=== PATIENT | female | born 1950 | race Caucasian/White ===

== ENCOUNTER 2019-06-04 16:09 | Emergency (ER) | payer MEDICARE ==
[~2019-06-04] VITALS: Ht 168.9 cm; Wt 101.1 kg
--- NOTE | 2019-06-04 16:42 | RAD ---
CT CODE STROKE HEAD WO History: Stroke symptoms Comparison: None. Technique: Noncontrast CT imaging was performed of the head. Exposure: One or more of the following individualized dose reduction techniques were utilized for this examination: 1. Automated exposure control 2. Adjustment of the mA and/or kV according to patient size 3. Use of iterative reconstruction technique. Findings: There is motion degradation. No convincing acute intracranial hemorrhage is identified. There is encephalomalacia with cortical involvement left occipital lobe, also likely some volume loss left cerebellum. Mild somewhat linear hyperdensity of the left cerebellum is probably related to mineralization given linear morphology. There is atherosclerotic calcification of the bilateral intradural vertebral arteries and carotid siphons. Left ICA bifurcation is somewhat more hyperdense than the right. There is atherosclerotic calcification of the bilateral carotid siphons and intradural vertebral arteries. There is no intra-axial mass effect or midline shift. Ventricular size is within normal limits. Mastoid air cells are aerated. There is mild left maxillary sinus mucosal thickening and small mucous retention cysts. There is patchy ethmoid air cell mucosal thickening greater on the left. There is mild deviation of the nasal septum to the left. Impression: 1. There is no convincing evidence of acute intracranial hemorrhage, exam degraded by motion. 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 Left ICA bifurcation is slightly more hyperdense than the right, thromboembolism not excludable by noncontrast exam, better evaluated with CTA if clinically needed. FOR INTERNAL CODING PURPOSES Critical result: Findings discussed with JASON CAO at 06/04/2019 4:36 PM. RESULT CODE: (C) Electronically signed by: Munir Salinas MD (06/04/2019 4:40 PM) [id number]
--- NOTE | 2019-06-04 16:44 | RAD ---
CHEST AP ONLY History: Stroke symptoms Comparison: September 08, 2007 Findings: Single view of the chest is submitted. Pericardial cardiac silhouette is stable. There is again azygos fissure. There is atherosclerotic calcification near aortic arch. There is no significant dependent pleural fluid, lobar infiltrate, pneumothorax. Impression: 1. There is no radiographic evidence of acute cardiopulmonary disease. Electronically signed by: Munir Salinas MD (06/04/2019 4:40 PM) [id number]
[2019-06-04 17:01] LABS: BASO # 0.1 x10^3/uL (0.0-0.2); BASO % 1 % (0-3); EOS # 0.2 x10^3/uL (0.0-0.7); EOS % 2 % (0-3); HEMOGLOBIN 15.4 g/dL (12.0-15.5); LYMPH # 2.5 x10^3/uL (1.0-4.8); LYMPH % 29 % (24-48); MEAN CORPUSCULAR HEMOGLOBIN 32 pg (25-35); MEAN CORPUSCULAR HGB CONC 33 g/dL (31-37); MEAN CORPUSCULAR VOLUME 98 fL (79-100); MONO # 0.5 x10^3/uL (0.0-1.1); MONO % 6 % (0-9); NEUT # 5.5 x10^3uL (1.8-7.7); NEUT % 62 % (31-73); PLATELET COUNT 289 x10^3/uL (140-400); RED CELL DISTRIBUTION WIDTH 14.6 % (11.5-14.5); WHITE BLOOD COUNT 8.8 x10^3/uL (4.0-11.0)
[2019-06-04 17:16] LABS: ALBUMIN 3.6 g/dL (3.4-5.0); CALCIUM 9.9 mg/dL (8.5-10.1); CREATININE 1.1 mg/dL (0.6-1.0); GFR 49.2; POTASSIUM 3.7 mmol/L (3.5-5.1); TOTAL BILIRUBIN 0.7 mg/dL (0.2-1.0); TOTAL PROTEIN 7.3 g/dL (6.4-8.2)
--- NOTE | 2019-06-04 17:52 | PHYS DOC ---
Past History Past Medical History: Arthritis, CVA, Diabetes Past Surgical History: Hysterectomy, Other Alcohol Use: None Drug Use: None Adult General Chief Complaint Chief Complaint: NEURO SYMPTOMS/DEFICITS [facility] Patient is a 69-year-old female who presents with complaint of slurred speech with right-sided facial droop and weakness. Patient's symptoms started sometime yesterday. noticed yesterday afternoon that she was having the slurred speech and little bit facial droop. He also indicated that she was having some difficulty with comprehension of some words. Patient does have a history of stroke affecting the right side of her body. Patient indicates that the symptoms are definitely new. She denies any headache, chest pain or shortness of breath. Patient states that she feels like symptoms are different from when she had had a stroke in the past. She is not able to further explain the differences.[] Review of Systems Review of Systems Constitutional: Denies fever or chills [] Respiratory: Denies cough or shortness of breath [] Cardiovascular: No additional information not addressed in HPI [] GI: Denies abdominal pain, nausea, vomiting or diarrhea [] Integument: Denies rash or skin lesions [] Neurologic: Positive slurred speech, right-sided facial droop and right-sided weakness[] All other systems were reviewed and found to be within normal limits, except as documented in this note. Allergies Allergies Allergies Coded Allergies Type Severity Reaction Last Updated Verified Sulfa (Sulfonamide Antibiotics) Allergy Unknown 06/04/19 Yes meperidine Allergy Unknown 06/04/19 Yes Physical Exam Physical Exam Constitutional: Well developed, well nourished, no acute distress, non-toxic appearance. [] HENT: Normocephalic, atraumatic, bilateral external ears normal, oropharynx moist, no oral exudates, nose normal. [] Eyes: PERRLA, EOMI, conjunctiva normal, no discharge. [] Neck: Normal range of motion, no tenderness, supple. [] Cardiovascular: Regular rate and rhythm[] Lungs & Thorax: Bilateral breath sounds clear to auscultation [] Abdomen: Bowel sounds normal, soft, no tenderness. [] Skin: Warm, dry, no erythema, no rash. [] Extremities: No tenderness, no cyanosis, no clubbing, ROM intact, no edema. [] Neurologic: Alert and oriented X 3, cranial nerves II through XII are grossly intact with exception of cranial nerve VII on the right, motor function for upper and lower extremities is 5 out of 5 and symmetric, there is right sided pronator drift with upper extremity. [] Current Patient Data Vital Signs Vital Signs Date Time Temp Pulse Resp B/P (MAP) Pulse Ox O2 Delivery O2 Flow Rate FiO2 06/04/19 16:09 100 18 93 Room Air Lab Results Laboratory Tests Test 06/04/19 16:40 White Blood Count 8.8 x10^3/uL (4.0-11.0) Red Blood Count 4.80 x10^6/uL (3.50-5.40) Hemoglobin 15.4 g/dL (12.0-15.5) Hematocrit 47.0 % (36.0-47.0) Mean Corpuscular Volume 98 fL (79-100) Mean Corpuscular Hemoglobin 32 pg (25-35) Mean Corpuscular Hemoglobin Concent 33 g/dL (31-37) Red Cell Distribution Width 14.6 % (11.5-14.5) H Platelet Count 289 x10^3/uL (140-400) Neutrophils (%) (Auto) 62 % (31-73) Lymphocytes (%) (Auto) 29 % (24-48) Monocytes (%) (Auto) 6 % (0-9) Eosinophils (%) (Auto) 2 % (0-3) Basophils (%) (Auto) 1 % (0-3) Neutrophils # (Auto) 5.5 x10^3uL (1.8-7.7) Lymphocytes # (Auto) 2.5 x10^3/uL (1.0-4.8) Monocytes # (Auto) 0.5 x10^3/uL (0.0-1.1) Eosinophils # (Auto) 0.2 x10^3/uL (0.0-0.7) Basophils # (Auto) 0.1 x10^3/uL (0.0-0.2) Sodium Level 134 mmol/L (136-145) L Potassium Level 3.7 mmol/L (3.5-5.1) Chloride Level 97 mmol/L (98-107) L Carbon Dioxide Level 26 mmol/L (21-32) Anion Gap 11 (6-14) Blood Urea Nitrogen 25 mg/dL (7-20) H Creatinine 1.1 mg/dL (0.6-1.0) H Estimated GFR (Cockcroft-Gault) 49.2 BUN/Creatinine Ratio 23 (6-20) H Glucose Level 548 mg/dL (70-99) *H Calcium Level 9.9 mg/dL (8.5-10.1) Total Bilirubin 0.7 mg/dL (0.2-1.0) Aspartate Amino Transferase (AST) 33 U/L (15-37) Alanine Aminotransferase (ALT) 41 U/L (14-59) Alkaline Phosphatase 140 U/L (46-116) H Total Protein 7.3 g/dL (6.4-8.2) Albumin 3.6 g/dL (3.4-5.0) Albumin/Globulin Ratio 1.0 (1.0-1.7) EKG EKG EKG demonstrates normal sinus rhythm with rate of 95.[] Radiology/Procedures Radiology/Procedures [] Impressions: PROCEDURE: CT CODE STROKE HEAD WO CT CODE STROKE HEAD WO History: Stroke symptoms Comparison: None. Technique: Noncontrast CT imaging was performed of the head. Exposure: One or more of the following individualized dose reduction techniques were utilized for this examination: 1. Automated exposure control 2. Adjustment of the mA and/or kV according to patient size 3. Use of iterative reconstruction technique. Findings: There is motion degradation. No convincing acute intracranial hemorrhage is identified. There is encephalomalacia with cortical involvement left occipital lobe, also likely some volume loss left cerebellum. Mild somewhat linear hyperdensity of the left cerebellum is probably related to mineralization given linear morphology. There is atherosclerotic calcification of the bilateral intradural vertebral arteries and carotid siphons. Left ICA bifurcation is somewhat more hyperdense than the right. There is atherosclerotic calcification of the bilateral carotid siphons and intradural vertebral arteries. There is no intra-axial mass effect or midline shift. Ventricular size is within normal limits. Mastoid air cells are aerated. There is mild left maxillary sinus mucosal thickening and small mucous retention cysts. There is patchy ethmoid air cell mucosal thickening greater on the left. There is mild deviation of the nasal septum to the left. Impression: 1. There is no convincing evidence of acute intracranial hemorrhage, exam degraded by motion. 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 Left ICA bifurcation is slightly more hyperdense than the right, thromboembolism not excludable by noncontrast exam, better evaluated with CTA if clinically needed. FOR INTERNAL CODING PURPOSES Critical result: Findings discussed with JASON CAO at 06/04/2019 4:36 PM. RESULT CODE: (C) Electronically signed by: Munir Salinas MD (06/04/2019 4:40 PM) [id number] Course & Med Decision Making Course & Med Decision Making Pertinent Labs and Imaging studies reviewed. (See chart for details) Patient moved to room upon arrival was evaluated by your medical staff after which a stroke workup has been initiated on this patient. CT scan returned with abnormal findings of radiodense sign in the left ICA bifurcation. Patient's case was discussed with Dr. Erazo and he is in agreement with patient being transferred to [facility], which is the patient's request. [facility] transfer Center has been contacted and Dr. Kaur is accepting patient in transfer. Dragon Disclaimer Dragon Disclaimer This electronic medical record was generated, in whole or in part, using a voice recognition dictation system. Departure Departure: Impression: Primary Impression: CVA (cerebral vascular accident) Additional Impression: Hyperglycemia due to type 2 diabetes mellitus Disposition: XF [facility] Condition: GOOD Problem Qualifiers Primary Impression: CVA (cerebral vascular accident) CVA mechanism: unspecified Qualified Codes: I63.9 - Cerebral infarction, unspecified Additional Impression: Hyperglycemia due to type 2 diabetes mellitus Diabetes mellitus alf insulin use: unspecified alf insulin use status Qualified Codes: E11.65 - Type 2 diabetes mellitus with hyper glycemia JASON CAO Jr. DO Jun 04, 2019 17:52
[2019-06-04] MEDS ORDERED: INSULIN REGULAR 100 UNIT/ML 3ML VIAL. IV ONE (18:00)
[2019-06-04] MEDS ORDERED: IV NORMAL SALINE 1,000ML 1,000 ML IV ONE (18:00)
[2019-06-04] MEDS ORDERED: LABETALOL 100 MG/20 ML VIAL. IV ONE ×2 (19:30→19:31)
[2019-06-04] MEDS ORDERED: cloNIDine HCL 0.1 MG TABLET PO ONE (19:30)
[2019-06-04 19:41] VITALS: BP 176/94
== END 2019-06-04 19:41 | disposition short-term general hospital (02) ==
LOC: ER 16:09
DX: I63.9 Cerebral infarction, unspecified (principal); R29.810 Facial weakness; R47.81 Slurred speech; R53.1 Weakness; E11.65 Type 2 diabetes mellitus with hyperglycemia; M19.90 Unspecified osteoarthritis, unspecified site; Z86.73 Personal history of transient ischemic attack (TIA), and cerebral infarction without residual deficits; Z88.2 Allergy status to sulfonamides; Z88.8 Allergy status to other drugs, medicaments and biological substances
CPT/HCPCS: 36415; 70450; 71045; 80053; 82947; 85025; 93005; 96361; 96374; 96375; 99285; J1815; J3490; J7030